=== PATIENT | female | born 1990 | race Caucasian/White ===

== ENCOUNTER 2017-05-16 18:29 | Emergency (ER) | payer OTHER ==
[2017-05-16] MEDS ORDERED: NORMAL SALINE 1,000 ML IV ONE ×2 (18:37→20:04)
--- NOTE | 2017-05-16 18:48 | ERNOTE ---
<Annette Ny - Last Filed: 05/16/17 18:50> ER Female HPI Stated Complaint: 20 WEEKS . BLEEDING. Time Seen by Provider: 05/16/17 18:34 Source: patient Exam Limitations: no limitations Immunizations: IMMUNIZATION HX Immunizations Up to Date Yes History of Influenza Vaccine No Hx Pneumococcal Vaccination No Allergies/Adverse Reactions: Allergies guaifenesin Adverse Reaction (Mild, Verified 05/16/17 18:38) "SILLY" Home Medications: HOME MEDICATIONS Dwt196/FA/Omega3/Dha/Fish Oil [ Gummies] 2 each PO DAILY 01/03/16 [Last Taken Unknown] - History of Present Illness Narrative: Patient's is 27-year-old 2 para 0 who presents to the emergency room with vaginal bleeding. Estimated gestational crisis 20 weeks. At some point this evening she noticed a gush of blood from the vaginal area. Blood noted to be bright red blood with blood clots that followed. She denies any lightheadedness, dizziness, shortness of breath, fever, chills, night sweats, vaginal discharge. Recent has been seen by [employer] and felt this point she's had an unremarkable course. Onset Location: Present: periumbilical - during the episode of vaginal bleeding she noticed periumbilical pain grabbed moderate intensity with no palliative or provocation factors. She reports currently her pain is mild Radiation: Present: none Activities at Onset: Present: none Prior Abdominal Problems: Present: none Associated Symptoms: Present: denies symptoms Review of Systems - Review of Systems Constitutional: Present: malaise EYE: Present: no symptoms reported ENT: Present: no symptoms reported Respiratory: Present: no symptoms reported Cardiology: Present: no symptoms reported Gastrointestinal/Abdominal: Present: abdominal pain Genitourinary: Present: no symptoms reported, See HPI Musculoskeletal: Present: no symptoms reported Skin: Present: no symptoms reported Neurological: Present: no symptoms reported Endocrine: Present: no symptoms reported Hematologic/Lymphatic: Present: no symptoms reported Psych: Present: no symptoms reported - Patient's Past Medical History Patient History - Medical: Anemia Patient History - Cardiac/Respiratory: No pertinent hx Patient History - Cancer: No Hx of Cancer Patient History - Surgical Procedures: T & A, Other Patient History - Other: None - Family History Mother Family History - Medical: No pertinent hx Family History - Cardiac/Respiratory: Hypertension, Hyperlipidemia Father Family History - Medical: Diabetes Type 2 Family History - Cardiac/Respiratory: No pertinent hx - Social History Abuse History: No History of abuse Psych History: No pertinent hx - Immunizations Immunizations Up to Date: Yes Hx Pneumococcal Vaccination: No History of Influenza Vaccine: No Physical Exam - Physical Exam General Appearance: Present: alert, no apparent distress, anxious Eye Exam: PERRL: bilateral, EOMI: bilateral Ears, Nose, Throat: Present: normal ENT inspection Neck: Present: normal inspection, nontender Respiratory: Present: no respiratory distress, normal breath sounds, lungs clear Cardiovascular/Chest: Present: tachycardia Gastrointestinal/Abdominal: Present: tenderness - at the suprapubic region more on the right than on the left. Back Exam: Present: normal inspection, normal range of motion, no CVA tenderness , no vertebral tenderness Extremity Exam: Present: normal inspection, normal range of motion Neurological Exam: Present: alert, oriented, normal mood/affect Skin Exam: Present: normal color, warm/dry Lymphatic Exam: Present: no adenopathy ED Progress - Vital Signs Patient's Vital Signs:: I have reviewed the patient's vital signs. - Transfer of Care Physician Sign Out: Lynette Stovall Receiving Physician: Annette Ny Pending Results: CT/MRI results, Labs, Physician/consult arrival Expected Disposition: Discharge Departure Clinical Impression: Vaginal bleeding before 22 weeks gestation Placenta previa Qualifiers: Trimester: second trimester Qualified Code(s): O44.02 - Complete placenta previa NOS or without hemorrhage, second trimester - Departure Disposition: [facility] Condition: Serious Referrals: Domo Ballesteros DO [Primary Care Provider] - <Lynette Stovall - Last Filed: 05/16/17 20:58> ER Female HPI Immunizations: IMMUNIZATION HX Immunizations Up to Date Yes History of Influenza Vaccine No Hx Pneumococcal Vaccination No Physical Exam - Physical Exam Pelvic Exam: Present: other - vaginal examination done by this examiner reveals that there is a clear liquid tinged with blood and I am unable to examine and feel the cervix. Does have tenderness upon my examination she has no adnexal masses but she is having copious amounts of clear fluid tinged with blood upon withdrawal of my examination finger ED Progress - Vital Signs Vital Signs: Vital Signs 1105/16/17 05/16/17 18:38 18:52 19:00 Temperature 37.4 C Pulse Rate 106 H 103 H 104 H Respiratory 20 14 Rate Blood Pressure 121/77 114/73 114/73 O2 Sat by Pulse 98 98 Oximetry 05/16/17 19:15 Temperature Pulse Rate 103 H Respiratory Rate Blood Pressure 121/71 O2 Sat by Pulse 99 Oximetry Plan - Plan Plan: This patient is a 27-year-old female at 20 weeks of gestation who is having a rupture of her membranes. Patient's blood type is O+ patient's ultrasound reveals complete placenta previa with a live heart rate of 152, severe oligohydramnios. Patient's vitals remained stable in our emergency room she has had a 1 unit drop in her hemoglobin since she has been here. This case was discussed in detail with Dr. Ballesteros and subsequently with the beauty culturist apprentice at [facility] by the name of Dr. Guillermo Virk. We are supporting the patient's status with IV fluids and 1 unit of packed red blood cells. The order to type and cross and transfuse this patient with one unit of packed red blood cell was placed at 2033. Patient will be transferred to [facility] care of Dr. Guillermo Virk as soon as possible. I am being told at this facility, by our nursing staff, Jaymie that obtaining blood for this patient will delay the care of this patient and the transfer of this patient by at least 20 minutes. It is at this time that it is in the patient's best interest to transfer the patient without blood because waiting for blood will delay her transfer The patient's blood pressure is stable at 124 over 90s. Additionally I received a call from the lab supervisor nutritional yeast, Tono that the actual infusion of this patient with one unit of packed red blood cells with delay the patient's care by 40 minutes. At this time it is in his decision is made by me to transfer the patient to [facility] with normal saline hanging and one liter to be infused in route.
[2017-05-16 18:53] LABS: Hemoglobin 11.6 gm/dL (12.5-16.0); Mean Cell Volume 85.6 fl (78-100); Mean Corpuscular Hemoglobin 29.2 pg (27-31); Mean Corpuscular Hgb Conc 34.1 g/dl (32-36); Neutrophil # 9.4 K/mm3 (1.3-6.0); Neutrophil % 70.7 % (42-75.0); Platelet Count 272 K/mm3 (150-450); Red Blood Count 3.97 M/mm3 (4.2-5.4); Red Cell Distribution Width 13.2 % (11.5-14.0); White Blood Count 13.3 K/mm3 (4.0-10.5)
[2017-05-16 19:07] LABS: Albumin * 3.2 gm/dl (3.4-5.0); Anion Gap 15.1 mmol/L (6.8-13.8); Bilirubin, Total 0.3 mg/dL (0.0-1.1); Ca. Corrected For Albumin 8.9 mg/dL (8.4-10.2); Calcium * 8.6 mg/dL (7.9-10.9); Carbon Dioxide 22.2 mmol/L (24-32.6); Potassium 3.3 mmol/L (3.4-4.6); Total Protein 7.6 gm/dL (6.2-8.2)
[2017-05-16 20:31] LABS: Hematocrit 29.1 % (37.0-47.0); Mean Cell Volume 86.1 fl (78-100); Mean Corpuscular Hemoglobin 29.6 pg (27-31); Mean Corpuscular Hgb Conc 34.4 g/dl (32-36); Mean Platelet Volume 9.2 fl (6.0-9.5); Platelet Count 233 K/mm3 (150-450); Red Blood Count 3.38 M/mm3 (4.2-5.4); Red Cell Distribution Width 13.2 % (11.5-14.0); White Blood Count 13.4 K/mm3 (4.0-10.5)
[2017-05-16 21:59] VITALS: BP 134/76
== END 2017-05-16 21:20 | disposition short-term general hospital (02) ==
LOC: ER 18:29
PROC: 0T9B70Z Drainage of Bladder with Drainage Device, Via Natural or Artificial Opening (ICD-10-PCS; principal; 2017-05-16)
DX: O44.02 Complete placenta previa NOS or without hemorrhage, second trimester (principal); O20.8 Other hemorrhage in early pregnancy; Z3A.20 20 weeks gestation of pregnancy